=== PATIENT | male | born 1970 | race Caucasian/White ===

== ENCOUNTER 2018-11-20 14:42 | Emergency (ER) | payer BC ==
--- NOTE | 2018-11-20 16:10 | ED ---
Lower Extremity - HPI Summary HPI Summary: Patient is a 48-year-old male who presents emergency department for left calf injury that occurred prior to arrival. Patient states he was playing soft ball and was running to catch a ball when he felt a pop in his left calf. Patient states he is able to ambulate but with pain. Symptoms are mild in severity. No current modifying factors. Denies numbness, tingling or weakness. - History of Current Complaint Chief Complaint: EDExtremityLower Stated Complaint: INJURY TO CALF LEFT LEG PER PATIENT Time Seen by Provider: 11/20/18 15:20 Hx Obtained From: Patient Pain Intensity: 2 - Allergies/Home Medications Allergies/Adverse Reactions: Allergies Allergy/AdvReac Type Severity Reaction Status Date / Time No Known Allergies Allergy Verified 11/20/18 14:47 PMH/Surg Hx/FS Hx/Imm Hx Previously Healthy: Yes Infectious Disease History: No Infectious Disease History: Denies: Traveled Outside the [place] in Last 30 Days - Family History Known Family History: Positive: Non-Contributory - Social History Occupation: Unemployed Lives: Alone Alcohol Use: None Substance Use Type: Reports: None Smoking Status (MU): Never Smoked Tobacco Review of Systems Positive: Other - left calf pain Skin: Negative Negative: Weakness, Paresthesia, Numbness All Other Systems Reviewed And Are Negative: Yes Physical Exam Triage Information Reviewed: Yes Vital Signs On Initial Exam: Initial Vitals Temp Pulse Resp BP Pulse Ox 97.3 F 80 18 108/80 96 11/20/18 14:46 11/20/18 14:46 11/20/18 14:46 11/20/18 14:46 11/20/18 14:46 Vital Signs Reviewed: Yes Appearance: Positive: Well-Appearing - Pt. sitting in wheelchair in NAD. Friend present. Skin: Positive: Warm, Dry Head/Face: Positive: Normal Head/Face Inspection Eyes: Positive: Normal, EOMI, BETO Neck: Positive: Supple Musculoskeletal: Positive: Other - Good pedal pulse on left. Compartment is soft and compressable. Pain on palpation of her mid upper left calf to gastrocnemius muscles. Achilles tendon, quadricep tendon and patellar tendon appear to be intact and without pain. Good p alpable pedal pulse. No bony tenderness. Neurological: Positive: Normal, CN Intact II-III Diagnostics - Vital Signs Vital Signs Temp Pulse Resp BP Pulse Ox 07/11/19 14:46 97.3 F 80 18 108/80 96 - Laboratory Lab Statement: Any lab studies that have been ordered have been reviewed, and results considered in the medical decision making process. Lower Extremity Course/Dx - Course Course Of Treatment: Patient presenting with left calf injury. No bony tenderness on exam or evidence of compartment syndrome. Suspect partial/ complete muscle tear to gastrocnemius. Tendons appear to be intact to left lower extremity. Discussed with patient that he will need to follow-up with orthopedics for further evaluation and plan will be to place lower extremity acewrap and crutches as well as ice and elevation and anti-inflammatories. Patient states he's leaving the area on a trip tomorrow and is upset he will not have any definitive tests done today. Explained to patient there is no emergent indication to obtain an MRI to assess for possible muscle rupture in the ER today. Patient requests to be seen by orthopedics today. I did call ortho office but clinic ended at 1500 today. Pt. will f.u with ortho. [facility]IO outpt. for further evaluation. To return for extreme pain, tingling, numbness of leg. - Diagnoses Differential Diagnosis/HQI/PQRI: Positive: Compartment Syndrome, Sprain, Strain , Tendonitis Provider Diagnoses: Gastrocnemius muscle tear Discharge - Sign-Out/Discharge Documenting (check all that apply): Patient Departure Patient Received Moderate/Deep Sedation with Procedure: No - Discharge Plan Condition: Good Disposition: HOME Patient Education Materials: Muscle Strain (ED) Referrals: James Yeh MD [Medical Doctor] - 3 Days Nick URBAN,Maurilio Benjamin [Primary Care Provider] - Additional Instructions: Schedule a follow up appointment with orthopedics in 2-3 days for further evaluation Wear acewrap and use crutches Ice and elevate intermittently Motrin for pain as directed Return to ER if symptoms change or worsen - Billing Disposition and Condition Condition: GOOD Disposition: Home
[2018-11-20 16:42] VITALS: BP 143/86
== END 2018-11-20 16:41 | disposition home or self-care (01) ==
LOC: ED 14:42
DX: S86.812A Strain of other muscle(s) and tendon(s) at lower leg level, left leg, initial encounter (principal); X50.9XXA Other and unspecified overexertion or strenuous movements or postures, initial encounter; Y93.64 Activity, baseball
CPT/HCPCS: 99282